=== PATIENT | male | born 1995 | race African-American/Black ===

== ENCOUNTER 2021-06-05 22:38 | Emergency (ER) | payer OTHER ==
[~2021-06-05] VITALS: Ht 175.3 cm; Wt 84.0 kg
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
[2021-06-05 22:52] VITALS: BP 131/81
[2021-06-05] MEDS ORDERED: IBUPROFEN 600 MG TABLET. PO ONE (23:30)
[2021-06-05] MEDS ORDERED: ACETAMINOPHEN 500 MG TABLET PO ONE (23:30)
--- NOTE | 2021-06-06 00:01 | RAD ---
Exam: Right hand 3 views. Right forearm 2 views INDICATION: Pain from distal half of forearm 2 metacarpal, fall TECHNIQUE: Frontal, lateral oblique views of the right hand. Frontal and lateral views of the right f orearm Comparisons: None FINDINGS: Hand: Bone mineralization is normal. No acute or healed fractures. Soft tissues are unremarkable. Joint spa terrence are well-maintained. Forearm: Bone mineralization is normal. No acute or healed fractures. Soft tissues are unremarkable. Joint spa terrence are well-maintained. IMPRESSION: 1. No acute osseous abnormality of the right hand. 2. No acute osseous abnormality of the right forearm. Electronically signed by: Vipul Min MD (06/05/2021 11:58 PM) [id number]
== END 2021-06-05 23:32 | disposition home or self-care (01) ==
LOC: ER 22:38
DX: M25.531 Pain in right wrist (principal); M79.631 Pain in right forearm; Y08.89XA Assault by other specified means, initial encounter; Y93.89 Activity, other specified; Y92.89 Other specified places as the place of occurrence of the external cause; Y99.8 Other external cause status
CPT/HCPCS: 73090; 73130; 99284